=== PATIENT | male | born 1965 | race Caucasian/White ===

== ENCOUNTER 2020-08-08 16:07 | Outpatient (REF) | payer OTHER, SELFPAY ==
--- NOTE | ~2020-08-08 | XR_ITS ---
EXAMINATION: RIGHT KNEE 3 VIEWS CLINICAL INFORMATION: Pain following injury. COMPARISON: None. TECHNIQUE: AP, lateral, oblique views of the right knee were obtained. FINDINGS: There are no fractures or dislocations. There is no knee joint effusion. There is mild superior patellar spurring. There is no significant soft tissue swelling. XR/XR knee RT 4V IMPRESSION: No evidence for acute injury to the right knee.
== END 2020-08-08 16:08 | disposition home or self-care (01) ==
LOC: HO.HMGCX 16:07
PROVIDERS: PCP Internal Medicine; Visit Provider Nurse Practitioner Family
DX: L03.115 Cellulitis of right lower limb (principal); S89.90XA Unspecified injury of unspecified lower leg, initial encounter
CPT/HCPCS: 73564

== ENCOUNTER 2023-02-08 13:53 | Outpatient (REF) | payer MEDICARE, MEDICAID, SELFPAY ==
--- NOTE | 2023-02-08 14:39 | MHC.AU.MED ---
Medical Clearance for Hearing Instrumentation Date: 02/08/23 Patient Name: Pernell Wiseman Date of : 1965 Primary Care Provider: Quinn Baker MD We have seen your patient on 02/08/23 and have determined that they are a candidate for amplification (See accompanying report). Specifically, they would benefit from: Hearing aid use in both ears There is a statute that addresses Medical Evaluation Requirements prior to fitting a patient with a hearing aid. According to [place] statute 265 CMR:6.03(1), (a) General. Except as provided in 265 CMR 6.03(1)(b), a bobbin loose end finder shall not sell a hearing aid unless the prospective user has presented to the bobbin loose end finder a written statement signed by a licensed physician that states that the patient's hearing loss has been medically evaluated and the patient may be considered a candidate for a hearing aid. The medical evaluation must have taken place within the preceding six months. Please note: Due to the [place] Statute referenced above, we cannot accept a signature other than that of a licensed physician. LANDSCAPE SPECIALIST and PA signatures cannot be accepted. I am in agreement with the above recommendation. There is no medical contraindication for hearing instrumentation. Physician Signature Date Physician Name (Printed)
--- NOTE | 2023-02-09 10:14 | MHC.AU.HA1 ---
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 Although he has noticed some degree of hearing loss for over 10 years, he more recently started experiencing more communication difficulties. He often has trouble understanding speech, especially in adverse listening environments. Pernell is ready to pursue hearing aids to help ease some of his communication difficulties. Although he does not perform as frequently, he still plays the [employer] guitar. He also frequents restaurants, spends time with his girlfriend, and has an active social life. Pernell is interested in rechargeable hearing aids with bluetooth compatibility to his Android cell phone. Hearing Aid Prescription: Based on the individual?s shared listening needs, communication environments, dexterity, desire for connectivity, and personal preferences, the following prescription for amplification has been made: Right ear: Make, Model, Color: Phonak Audeo L70-R Color: Silver Camara Battery Size: Rechargeable Associate Editor/Slim Tube: 2M Type of Earmold/Dome/CShell/SlimTip: Medium open dome Left ear: Left ear prescription to be same as Right Hearing Aid above: Make, Model, Color: Phonak Audeo L70-R Color: Silver Camara Battery Size: Rechargeable Associate Editor/Slim Tube: 2M Type of Earmold/Dome/CShell/SlimTip: Medium open dome Plan of Care: Patient wishes to purchase hearing aids as prescribed Action Taken/Action Needed: Medical Clearance to be requested from PCP/ENT. Hearing Instrument Fitting to be scheduled when materials arrive Primary Diagnosis: H90.3 Bilateral Sensorineural Hearing Loss Signature: Provider: Eloina Stewart, [facility]
== END 2023-02-08 13:54 | disposition home or self-care (01) ==
LOC: HO.SH 13:53
PROVIDERS: Visit Provider Internal Medicine
DX: H90.3 Sensorineural hearing loss, bilateral (principal)
CPT/HCPCS: 92557; 92567; 92591

== ENCOUNTER 2023-03-01 10:30 | Outpatient (REF) | payer MEDICARE, MEDICAID, SELFPAY ==
[2023-03-01 14:24] LABS: MANUAL DIFF FLAG NO
[2023-03-01 14:30] LABS: Basophils Absolute Auto 0.1 X10*3/uL (0.0-0.2); Basophils Percent Auto 1.3 % (0-2); Eosinophils Absolute Auto 0.2 X10*3/uL (0.0-0.4); Eosinophils Percent Auto 2.1 % (0-4); Hematocrit 46.3 % (42.0-52.0); Imm Gran Abs Auto 0.02 X10*3/uL (0.00-0.03); Imm Gran Pct Auto 0.3 % (0.0-0.4); Lymphocytes Percent Auto 27.1 % (20-40); Mean Corpuscular HGB Conc 34.6 g/dl (31.0-36.0); Mean Corpuscular Hemoglobin 33.3 pg (27.0-33.0); Mean Corpuscular Volume 96.5 fL (80.0-98.0); Mean Platelet Volume 11.1 fL (9.4-12.4); Monocytes Absolute Auto 0.4 X10*3/uL (0.1-1.2); Monocytes Percent Auto 6.1 % (2-11); Neutrophils Absolute Auto 4.5 x10*3/uL (2.0-8.3); Neutrophils Percent Auto 63.1 % (45-73); Platelet Count 176 X10*3/uL (160-400); Red Cell Distribution Width 12.3 % (11.0-16.0); White Blood Count 7.2 X10*3/uL (4.8-10.8)
[2023-03-01 15:08] LABS: Alanine Aminotransferase 34 U/L (0-40); Albumin Level 4.3 g/dL (3.5-5.0); Alkaline Phosphatase 55 U/L (39-117); Anion Gap 13 (12-20); Aspartate Amino Transferase 25 U/L (5-37); Bilirubin Total 0.9 mg/dL (0.0-1.0); Blood Urea Nitrogen 14 mg/dL (9-16); Calcium 9.9 mg/dL (8.4-10.2); Carbon Dioxide 24 mmol/L (22-29); Chloride 105 mmol/L (96-108); Cholesterol 130 mg/dL (<200); Estimated Glomerular Filt Rate > 60; Glucose Fasting 111 mg/dL (60-99); HDL Cholesterol 34 mg/dL (>40); LDL Cholesterol Calculated 63 mg/dL (<100); Potassium 4.4 mmol/L (3.3-5.1); Sodium 138 mmol/L (135-145); TSH reflex Free T4 2.07 uIU/mL (0.32-4.0); Total Protein 7.6 g/dL (6.5-8.0); Triglycerides 167 mg/dL (<150)
[2023-03-01 15:15] LABS: Folate 15.8 ng/mL (> or = 4.0); Vitamin B12 724 pg/mL (200-900)
[2023-03-06 00:54] LABS: VITAMIN D (1,25 OH) D3 34 pg/mL; Vit D (1,25-Dihydroxy) Total 34 pg/mL (18-72); Vitamin D (1,25 OH) D2 <8 pg/mL
== END 2023-03-01 10:31 | disposition home or self-care (01) ==
LOC: HO.CHCLDS 10:30
PROVIDERS: Visit Provider Family Medicine
DX: E11.9 Type 2 diabetes mellitus without complications (principal); E55.9 Vitamin D deficiency, unspecified
CPT/HCPCS: 36415; 80053; 80061; 82607; 82652; 82746; 84443; 85025

== ENCOUNTER 2023-03-17 12:48 | Outpatient (REF) | payer MEDICARE, MEDICAID, SELFPAY | END 2023-03-17 12:49 | disposition home or self-care (01) | LOC: HO.HAP 12:48 | PROVIDERS: Visit Provider Internal Medicine | DX: Z46.1 Encounter for fitting and adjustment of hearing aid (principal); H90.3 Sensorineural hearing loss, bilateral | CPT/HCPCS: 92595; V5011; V5020; V5160; V5261 ==

== ENCOUNTER 2023-04-07 10:10 | Outpatient (REF) | payer MEDICARE, MEDICAID, SELFPAY | END 2023-04-07 10:11 | disposition home or self-care (01) | LOC: HO.MRI 10:10 | PROVIDERS: PCP Family Medicine; Visit Provider Family Medicine | DX: Z13.89 Encounter for screening for other disorder (principal) ==

== ENCOUNTER 2023-04-08 13:57 | Outpatient (REF) | payer MEDICARE, MEDICAID, SELFPAY | END 2023-04-08 13:58 | disposition home or self-care (01) | LOC: HO.HAP 13:57 | PROVIDERS: Visit Provider Internal Medicine | DX: Z13.89 Encounter for screening for other disorder (principal) ==

== ENCOUNTER 2023-04-20 08:39 | Outpatient (REF) | payer MEDICARE, MEDICAID, SELFPAY ==
--- NOTE | ~2023-04-20 | XR_ITS ---
EXAMINATION: XR BILATERAL HIPS CLINICAL INFORMATION: Bilateral hip pain COMPARISON: None TECHNIQUE: AP and frog lateral views were obtained of each hip. 4 views total. FINDINGS: RIGHT HIP: Degenerative changes on limited views of the inferior aspect of the right sacroiliac joint. Corticated cystic lucency along the lateral aspect of the right femoral neck Mild degenerative changes in the right hip with joint space narrowing. Soft tissue calcification superior to the greater trochanter. Vascular calcifications. LEFT HIP: Degenerative changes on limited views of the inferior aspect of the left sacroiliac joint. Mild degenerative changes in the left hip with joint space narrowing. Vascular calcifications. XR/XR hip RT min 2V IMPRESSION: 1. Mild degenerative changes in bilateral hips. Corticated cystic lucency along the lateral aspect of the right femoral neck. 2. Degenerative changes on limited views of the bilateral sacroiliac joints. Additional imaging with CT scan or MRI should be considered for better visualization as these modalities are much more sensitive for detection of fracture or other underlying pathology.
--- NOTE | ~2023-04-20 | XR_ITS ---
EXAMINATION: XR BILATERAL HIPS CLINICAL INFORMATION: Bilateral hip pain COMPARISON: None TECHNIQUE: AP and frog lateral views were obtained of each hip. 4 views total. FINDINGS: RIGHT HIP: Degenerative changes on limited views of the inferior aspect of the right sacroiliac joint. Corticated cystic lucency along the lateral aspect of the right femoral neck Mild degenerative changes in the right hip with joint space narrowing. Soft tissue calcification superior to the greater trochanter. Vascular calcifications. LEFT HIP: Degenerative changes on limited views of the inferior aspect of the left sacroiliac joint. Mild degenerative changes in the left hip with joint space narrowing. Vascular calcifications. XR/XR hip LT min 2V IMPRESSION: 1. Mild degenerative changes in bilateral hips. Corticated cystic lucency along the lateral aspect of the right femoral neck. 2. Degenerative changes on limited views of the bilateral sacroiliac joints. Additional imaging with CT scan or MRI should be considered for better visualization as these modalities are much more sensitive for detection of fracture or other underlying pathology.
== END 2023-04-20 08:40 | disposition home or self-care (01) ==
LOC: HO.XRAY 08:39
PROVIDERS: PCP Family Medicine; Visit Provider Family Medicine
DX: M25.552 Pain in left hip (principal); M25.551 Pain in right hip
CPT/HCPCS: 73502

== ENCOUNTER 2023-05-08 07:22 | Outpatient (REF) | payer MEDICARE, MEDICAID, SELFPAY ==
--- NOTE | ~2023-05-08 | XR_ITS ---
EXAMINATION: XR ANKLE, LEFT CLINICAL INFORMATION: Acute left ankle pain . COMPARISON: Left foot 01/06/2019. TECHNIQUE: AP, lateral, and mortise views of the left ankle. FINDINGS: Thick, elongated ossification along the distal lateral aspect of the tibia, difficult to evaluate as this region is partially obscured by the overlying fibula. Similar-appearing sclerotic lesion overlying the distal leg on the lateral view was likely present on exam of the left foot of 01/06/2019, however, AP and oblique views of the ankle are not available for comparison. Vascular calcifications. Corticated ossicle along the anterior superior aspect of the talus on the lateral view may have been present on the prior exam, versus avulsion of indeterminate age. Joint effusion. Spurring at the distal tibia with degenerative changes. XR/XR ankle LT min 3V IMPRESSION: Findings, as detailed above, of indeterminate age and significance. Correlation with clinical exam recommended to determine further management. If there is concern for fracture or other underlying pathology, MRI could be obtained for further evaluation.
[2023-05-08 09:07] LABS: ~Hepatitis C Antibody Nonreactive (Nonreactive)
== END 2023-05-08 07:23 | disposition home or self-care (01) ==
LOC: HO.XRAY 07:22
PROVIDERS: PCP Family Medicine; Visit Provider Family Medicine
DX: Z13.9 Encounter for screening, unspecified (principal); M25.572 Pain in left ankle and joints of left foot
CPT/HCPCS: 36415; 73610; 86803

== ENCOUNTER 2023-06-02 11:34 | Outpatient (AMB) | payer MEDICARE, MEDICAID, SELFPAY ==
[2023-06-02 11:37] VITALS: BMI 38.4
--- NOTE | 2023-06-02 11:37 | MHC.OFFVIS ---
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 Patient reports that he has history of left ankle fracture, this was treated with a cast. He has significant weakness and atrophy of the lower left leg. After fracture he did not do PT. This ankle has gradually become increasingly painful over the last three years. He has numbness and tingling of both feet, of note he is diabetic. He explains that his pain is felt all the time with increasing pain with activity. Allergies No Known Allergies Allergy (Verified 06/02/23 11:43) Medication List - Last Reconciled 06/02/23 by Ivelisse Salazar MD atorvastatin 10 mg PO DAILY blood sugar diagnostic (FreeStyle Lite Strips) Check blood sugars twice a day blood-glucose meter (FreeStyle Lite Meter kit) Use to check blood sugars twice a day dulaglutide (Trulicity) mg subcut lisinopril 30 mg PO DAILY loratadine 10 mg PO ONCE metformin 500 mg PO BID multivitamin 1 tab PO DAILY HPI HPI Comments History of Present Illness Details History of left proximal tibia and distal fibula 30 years, treated with cast. No issues since then. Was doing well until 3 years ago. Feels that he is dragging his foot. He can dorsiflex but he limps. Pain inside ankle , both medial and lateral. He has history of neuropathy for past 10 years, attributed to DM. Chronic back pain, but separate issue. Has not sought treatment for this. [facility] Medical History Hypertension Diabetes mellitus Surgical History No pertinent past surgical history Family History Father No problems noted. Mother No problems noted. Social History Housing: Apartment Alcohol intake: current Alcohol intake frequency: holidays/special occasions only Patient Tobacco Use Status: Current someday Tobacco user Tobacco use type: Cigarette e-Cigarette/Vaping Use: Never Used Second Hand Smoke Exposure: No service: No Current occupational status: disabled Cognitive needs: No Hearing needs: No Vision needs: No Review of Systems Const All systems reviewed & are unremarkable except as noted in HPI and below Physical Exam Vital Signs: BMI result Body Mass Index 38.4 Constitutional: Patient appears to be in no acute distress, well nourished and well developed. MSK: Several areas of tenderness, around left medial might rely, along dorsiflexor tendons, along Achilles tendon. Even tender on plantar fascia. No signs of inflammation, swelling, redness. Both feet are cold to touch symmetric. No allodynia. No change in skin or hair. No footdrop. Strong dorsiflexion and EHL bilateral. Strong inversion and eversion. No calf tenderness. Neurological: Neurologic examination of the upper and lower extremities was nonfocal with intact sensation, muscle stretch reflexes and without focal motor deficits . Driscoll?s negative bilaterally. Babinski was down going bilaterally. Clonus was negative. Gait is antalgic without loss of balance. Results Reviewed Results Reviewed: XR ANKLE, LEFT CLINICAL INFORMATION: Acute left ankle pain . COMPARISON: Left foot 01/06/2019. TECHNIQUE: AP, lateral, and mortise views of the left ankle. FINDINGS: Thick, elongated ossification along the distal lateral aspect of the tibia, difficult to evaluate as this region is partially obscured by the overlying fibula. Similar-appearing sclerotic lesion overlying the distal leg on the lateral view was likely present on exam of the left foot of 01/06/2019, however, AP and oblique views of the ankle are not available for comparison. Vascular calcifications. Corticated ossicle along the anterior superior aspect of the talus on the lateral view may have been present on the prior exam, versus avulsion of indeterminate age. Joint effusion. Spurring at the distal tibia with degenerative changes. XR/XR ankle LT min 3V IMPRESSION: Findings, as detailed above, of indeterminate age and significance. Correlation with clinical exam recommended to determine further management. If there is concern for fracture or other underlying pathology, MRI could be obtained for further evaluation. I independently reviewed the results of the following: Difficult to see the ossification mentioned above I reviewed records from the following: Primary care/[facility] Assessment & Plan Assessment & Plan (1) Left ankle sprain: Code(s): S93.402A - Sprain of unspecified ligament of left ankle, initial encounter Qualifiers: Encounter type: initial encounter Involved ligament of ankle: unspecified ligament Qualified Code(s): S93.402A - Sprain of unspecified ligament of left ankle, initial encounter (2) Neuropathy: Code(s): G62.9 - Polyneuropathy, unspecified Plan Suspect chronic ankle sprain. I thought about possibly CRPS, although he does not have signs of eyelid the knee a or skin changes. History of neuropathy from diabetes. Will put him on a boot. Gave him instructions. Referring him to physical therapy. If not improved in 2-3 months, we can consider further imaging such as MRI. Assessment and plan discussed with patient, and patient was agreeable. All questions were answered thoroughly. Follow-up 8 weeks. Ivelisse Salazar MD, GIANCARLO Board Certified, [place] Board of [employer] Medicine and Rehabilitation (ABPMR) Board Certified, [place] Board of Electrodiagnostic Medicine (ABEM) Coding Level of Care Code New Pt Level 4 (71135) Diagnoses Sprain of left ankle, unspecified ligament, initial encounter S93.402A Encounter type: initial encounter Involved ligament of ankle: unspecified ligament Neuropathy G62.9
== END 2023-06-02 12:44 | disposition home or self-care (01) ==
PROVIDERS: PCP Family Medicine; Visit Provider Physical Medicine & Rehabilitation
DX: S93.402A Sprain of unspecified ligament of left ankle, initial encounter (principal); G62.9 Polyneuropathy, unspecified
CPT/HCPCS: 99204

== ENCOUNTER → 2023-06-02 11:34 | Outpatient (BNVA) | payer MEDICARE, MEDICAID, SELFPAY | PROVIDERS: PCP Family Medicine; Visit Provider Physical Medicine & Rehabilitation | DX: S93.402A Sprain of unspecified ligament of left ankle, initial encounter (principal); G62.9 Polyneuropathy, unspecified | CPT/HCPCS: 99202 ==

== ENCOUNTER 2023-10-11 13:05 | Outpatient (AMB) | payer MEDICARE, MEDICAID, SELFPAY ==
--- NOTE | 2023-10-11 13:09 | A.OFFVIS_ITS ---
Vital Signs 10/11/23 13:10 Height 5 ft 7 in Weight 218 lb 4.122 oz BMI 34.2 BP 136/66 Blood Pressure Location Lt brachial Position Sitting Pulse 94 Intake Visit Reasons: Colonoscopy Screening Intake Note: Pernell presents in the office as a colonoscopy screening. CC: He states that he is has changed his diet and lost 50lbs. Rash has gone away. 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 Allergies No Known Allergies Allergy (Verified 10/11/23 13:12) Medication List - Last Reconciled 10/11/23 by Brandy Santos PA-C atorvastatin 10 mg PO DAILY betamethasone dipropionate 0.05% appl topical blood sugar diagnostic (FreeStyle Lite Strips) Check blood sugars twice a day blood-glucose meter (FreeStyle Lite Meter kit) Use to check blood sugars twice a day dulaglutide (Trulicity) mg subcut gabapentin mg PO lisinopril 30 mg PO DAILY metformin 500 mg PO BID multivitamin 1 tab PO DAILY HPI Comments Details: 58-year-old male referred for index screening colonoscopy He has a ggod- vegeterian- x 5 mos- gave up atoh He has intentionally lost wt- He has no issues with his bowel He had had a rash resolved unsure cause- psoriasis- sees derm No N/V/D-abdomianl pain- PFSH Medical History Hypertension Diabetes mellitus Surgical History No pertinent past surgical history Family History Father No problems noted. Mother No problems noted. Social History Housing: Apartment Alcohol intake: current Alcohol intake frequency: holidays/special occasions only Patient Tobacco Use Status: Current someday Tobacco user Tobacco use type: Cigarette e-Cigarette/Vaping Use: Never Used Second Hand Smoke Exposure: No service: No Current occupational status: disabled Cognitive needs: No Hearing needs: No Vision needs: No Review of Systems Const Reports fatigue Card Denies chest pain and Denies dyspnea Resp Denies dyspnea GI Denies abdominal pain, Denies constipation, Denies heartburn and Denies nausea Endo Reports fatigue Physical Exam Vital Signs: Last Vital Signs Pulse 94 10/11/23 13:10 BP 136/66 10/11/23 13:10 BMI result Body Mass Index 34.2 Const General: cooperative, healthy appearing, comfortable and no acute distress Nutritional Appearance: overweight Orientation/consciousness: patient oriented x3 Limitations: no limitations Resp Effort & Inspection: normal respiratory effort and able to speak in complete sentences Auscultation: clear to auscultation bilaterally, no rales, no rhonchi and no wheezes Cardio Rate: regular rate Rhythm: regular rhythm Heart sounds: S1 normal heart sound present and S2 normal heart sound present GI Palpation (GI): Soft to palpation and nontender Auscultation: normal bowel sounds Skin General skin exam: no rashes or lesions noted Neuro General: patient oriented x3 Extrem General: Yes full ROM Psych Appearance: well kempt Mental Status: mental status grossly normal Speech and movement: Normal speech and movement present and Clear speech present Affect: normal affect Attitude: cooperative Thought process: Normal thought process present Thought content: Normal thought content present Insight: Good insight present (Psych) Judgement: Good judgement present (Psych) Assessment & Plan Assessment & Plan (1) Obesity: Code(s): E66.9 - Obesity, unspecified Category: Medical Plan: BMI 34.2 (2) Diabetes mellitus: Comment: alicia, metformin Code(s): E11.9 - Type 2 diabetes mellitus without complications Category: Medical Plan: trulicity FRIDAYS (3) Positive colorectal cancer screening using Cologuard test: Code(s): R19.5 - Other fecal abnormalities Category: Medical Plan: colonoscopy (4) Encounter for screening colonoscopy: Code(s): Z12.11 - Encounter for screening for malignant neoplasm of colon Category: Medical Plan colonoscopy r/o cause for (reviewed approximate 13% false positive) positive Cologuard MiraLax Gatorade prep BMI 34.2 Trulicity-hold x1 week Metformin omit day before procedure as well as morning Orders: Orders Colonoscopy - GI Use Only Today E66.9 - Obesity, unspecified, R19.5 - Other fecal abnormalities Medications: New bisacodyl (Dulcolax (bisacodyl)) Day before procedure @ 12 noon Take 4 tablets by mouth followed by large glass of water 20 mg (4 x 5 mg) PO ONCE PRN 4 tabs 0RF colonoscopy prep 1 day Z12.11 - Encounter for screening for malignant neoplasm of colon polyethylene glycol 3350 (Miralax) Take as directed by mouth the day before your procedure. 238 grams PO ONCE PRN 238 grams 0RF laxative effect 1 day Discontinued loratadine Discontinued Reason: Patient no longer taking 10 mg PO DAILY Patient Instructions: Screening colonoscopy Discussed procedure, rare risks need for e scorted due to anesthesia MiraLax Gatorade prep reviewed literature given [facility] prior to procedure Will omit metformin day before as well as morning of procedure Encouraged to call with questions or concerns
[2023-10-11 13:10] VITALS: BP 136/66; PULSE 94; BMI 34.2
== END 2023-10-11 15:05 | disposition home or self-care (01) ==
LOC: HO.HGI 13:05
PROVIDERS: PCP Family Medicine; Visit Provider Physician Assistant
DX: E66.9 Obesity, unspecified (principal); E11.9 Type 2 diabetes mellitus without complications; R19.5 Other fecal abnormalities; Z12.11 Encounter for screening for malignant neoplasm of colon
CPT/HCPCS: 99203

== ENCOUNTER → 2023-10-11 13:05 | Outpatient (BNVA) | payer MEDICARE, MEDICAID, SELFPAY | PROVIDERS: PCP Family Medicine; Visit Provider Physician Assistant | DX: R19.5 Other fecal abnormalities (principal); E11.9 Type 2 diabetes mellitus without complications; E66.9 Obesity, unspecified; Z68.34 Body mass index [BMI] 34.0-34.9, adult; Z79.85 Long-term (current) use of injectable non-insulin antidiabetic drugs | CPT/HCPCS: 99202 ==

== ENCOUNTER 2023-12-13 10:30 | Outpatient (REF) | payer MEDICARE, MEDICAID, SELFPAY ==
[2023-12-14 08:24] LABS: HBS Num1 0.36 mIU/mL (0-7.99); HBc Num1 0.27 S/CO (0.00-0.79); HBsAGNum1 0.25 S/CO (0.00-0.99); HIV AB/AG Nonreactive (Nonreactive); HIV Num 1 0.05 S/CO (0.00-0.99); Hepatitis B Core Antibody Nonreactive (Nonreactive); Hepatitis B Surface Antigen Negative (Negative); ~Hepatitis B Surface Antibody NONREACTIVE (Nonreactive)
== END 2023-12-13 10:31 | disposition home or self-care (01) ==
LOC: HO.LAB 10:30
PROVIDERS: PCP Family Medicine; Visit Provider Family Medicine
DX: Z13.9 Encounter for screening, unspecified (principal); Z11.59 Encounter for screening for other viral diseases
CPT/HCPCS: 36415; 86704; 86706; 87340; 87389

== ENCOUNTER 2024-02-29 08:51 | Day surgery (SDC) | payer MEDICARE, MEDICAID, SELFPAY ==
[2024-02-25 13:00] VITALS: BMI 34.1
--- NOTE | 2024-02-28 09:25 | HO.ANESPROP2 ---
HPI - Anesthesia Eval Consult details Narrative: 58yo M for Colonoscopy Anesthesia Pre-Procedure Meds Is the patient on any of the following meds?: GLP1/DPP4 PMFSH Active Problems Active Problems: All Active Problems Positive colorectal cancer screening using Cologuard test (Acute) Encounter for screening colonoscopy (Acute) Neuropathy (Acute) Left ankle sprain (Acute) Physical exam (Acute) Depression (Acute) Hyperlipidemia (Acute) Hypertension (Acute) Obesity (Acute) Type 2 diabetes mellitus with morbid obesity (Acute) Physical exam (Acute) Cellulitis of knee, right (Acute) Knee injury (Acute) Hypertension (Acute) Diabetes mellitus (Acute) Past Medical History Medical History Elevated cholesterol Neuropathy Hypertension Diabetes mellitus Family History Family History Father No problems noted. Mother No problems noted. Surgical History Surgical History No pertinent past surgical history Social History Social History Housing: Apartment Alcohol intake: current Alcohol intake frequency: holidays/special occasions only Patient Tobacco Use Status: Former Tobacco user Tobacco use type: Cigarette e-Cigarette/Vaping Use: Never Used Second Hand Smoke Exposure: No Use of substances other than those prescribed or required for medical reasons: Yes Are you DNR?: No Advance Directives: No Advance Directives Information Provided: Yes Recently lost weight without trying: No Nutrition Risks: No Nutritional Risk Poor oral hygiene: No service: No Current occupational status: disabled Cognitive needs: No Hearing needs: No Vision needs: No Meds Allergies Allergy/AdvReac Type Severity Reaction Status Date / Time No Known Allergies Allergy Verified 10/11/23 13:12 Home Medications ?Medication ?Instructions ?Recorded ?Confirmed ?Last Taken ?Type dulaglutide 0.75 mg/0.5 mL 0.75 mg subcut QWEEK 06/02/23 02/25/24 Unknown History subcutaneous pen injector (Trulicity) gabapentin 300 mg capsule 600 mg PO BEDTIME 10/11/23 02/25/24 Unknown History Exam Height,Weight and Vital Signs: Height 5 ft 7 in Weight 98.883 kg Assessment and Plan Assessment Anesthesia Assessment: Chart Reviewed
--- NOTE | ~2024-02-29 | XR_ITS ---
EXAMINATION: CHEST AND KUB CLINICAL INFORMATION: Rule out bowel perforation with abdominal pain after colonoscopy and polypectomy COMPARISON: None available. TECHNIQUE: AP upright portable chest and supine abdomen FINDINGS: Heart size normal. No free air is seen beneath the hemidiaphragms. Some mild basilar atelectasis is present. The bowel gas pattern is unremarkable without evidence of obstruction. There is gas seen in colon as well as small bowel. Clips are noted along the path of the descending colon and overlying the region of the sigmoid. Degenerative changes are seen in the spine. XR/XR KUB IMPRESSION: No evidence of bowel obstruction or perforation. No free air is seen. Electronically signed by: Ga Mariscal MD 02/29/2024 05:32 PM EDT RP
--- NOTE | ~2024-02-29 | XR_ITS ---
EXAMINATION: CHEST AND KUB CLINICAL INFORMATION: Rule out bowel perforation with abdominal pain after colonoscopy and polypectomy COMPARISON: None available. TECHNIQUE: AP upright portable chest and supine abdomen FINDINGS: Heart size normal. No free air is seen beneath the hemidiaphragms. Some mild basilar atelectasis is present. The bowel gas pattern is unremarkable without evidence of obstruction. There is gas seen in colon as well as small bowel. Clips are noted along the path of the descending colon and overlying the region of the sigmoid. Degenerative changes are seen in the spine. XR/XR chest 1V IMPRESSION: No evidence of bowel obstruction or perforation. No free air is seen. Electronically signed by: Ga Mariscal MD 02/29/2024 05:32 PM EDT RP
--- NOTE | ~2024-02-29 | XR_ITS ---
EXAMINATION: XR ABDOMEN KUB CLINICAL INDICATION: Evaluation for pneumoperitoneum COMPARISON: Earlier KUB and chest radiograph TECHNIQUE: AP view of the abdomen. FINDINGS: Upright study shows normal bowel gas pattern without free air, mass, or mass effect. XR/XR KUB IMPRESSION: Unremarkable Electronically signed by: Jay Payan MD 02/29/2024 04:38 PM EDT RP
--- NOTE | 2024-02-29 09:21 | MHC.SHP ---
Pre-Procedural Eval Section A - 24 Hr Update-Section A only Date of Service: 02/29/24 The patient is an INPATIENT: No The patient has been examined within 24 hours of the surgical procedure. The History & Physical has been completed within 30 days and I have reviewed it.: No Section B - Complete if H&P > 30 days Chief Complaint: Positive Cologuard test Relevant Family History (Specify if Yes): Yes Relevant Social History: Tobacco Use Present Medications: see Short Stay Collaborative assessment Medical History: Significant History (Hypertension Diabetes mellitus) History of Previous Operations: No relevant previous surgery Allergies: Allergies Allergy/AdvReac Type Severity Reaction Status Date / Time No Known Allergies Allergy Verified 10/11/23 13:12 Review of Systems Sugical H&P ROS: Negative: Constitution, Cardiovascular, Respiratory and Gastrointestinal Exam Surgical H&P Exam: Normal: Heart, Normal: Lungs, Normal: Extremities and Normal: Abdomen Plan Diagnosis/Plan: Unchanged I have reviewed the history and physical and performed a pertinent physical examination on my patient. No changes have occurred unless specified. Time Spent With Patient Time: Total time managing care of this patient today ____ minutes.
[2024-02-29 09:47] VITALS: BMI 32.9
[2024-02-29 09:57] VITALS: BP 142/81; PULSE 87; RESP 16; TEMP 36.9; O2SAT 98
[2024-02-29 09:57] LABS: Glucose, Whole Blood 99 mg/dL (60-115)
[2024-02-29] MEDS: Lactated Ringers 1,000 ML 100 ML IVCONT (10:13)
--- NOTE | 2024-02-29 10:40 | HO.ANESPROP2 ---
[facility] Active Problems Active Problems: All Active Problems Positive colorectal cancer screening using Cologuard test (Acute) Encounter for screening colonoscopy (Acute) Neuropathy (Acute) Left ankle sprain (Acute) Physical exam (Acute) Depression (Acute) Hyperlipidemia (Acute) Hypertension (Acute) Obesity (Acute) Type 2 diabetes mellitus with morbid obesity (Acute) Physical exam (Acute) Cellulitis of knee, right (Acute) Knee injury (Acute) Hypertension (Acute) Diabetes mellitus (Acute) Past Medical History Medical History Elevated cholesterol Neuropathy Hypertension Diabetes mellitus Functional capacity: independent ambulation Family History Family History Father No problems noted. Mother No problems noted. Family history of problems with anesthesia: No Surgical History Surgical History No pertinent past surgical history History of Problems with Anesthesia: No Social History Social History Housing: Apartment Alcohol intake: current Alcohol intake frequency: holidays/special occasions only Patient Tobacco Use Status: Former Tobacco user Tobacco use type: Cigarette e-Cigarette/Vaping Use: Never Used Second Hand Smoke Exposure: No Use of substances other than those prescribed or required for medical reasons: Yes Are you DNR?: No Advance Directives: No Advance Directives Information Provided: Yes Recently lost weight without trying: No Nutrition Risks: No Nutritional Risk Poor oral hygiene: No service: No Current occupational status: disabled Cognitive needs: No Hearing needs: No Vision needs: No Meds Allergies Allergy/AdvReac Type Severity Reaction Status Date / Time No Known Allergies Allergy Verified 10/11/23 13:12 Active Medications: Current Medications Lactated Ringer's (Lr) 1,000 mls @ 100 mls/hr IVCONT .Q10H RAFA Last Admin: 02/29/24 10:13 Dose: 100 mls/hr Home Medications ?Medication ?Instructions ?Recorded ?Confirmed ?Last Taken ?Type dulaglutide 0.75 mg/0.5 mL 0.75 mg subcut QWEEK 06/02/23 02/25/24 Unknown History subcutaneous pen injector (Trulicity) gabapentin 300 mg capsule 600 mg PO BEDTIME 10/11/23 02/25/24 Unknown History Exam Height,Weight and Vital Signs: Height 5 ft 7 in Weight 95.254 kg Last Vital Signs Temp 98.4 F 02/29/24 09:57 Pulse 87 02/29/24 09:57 Resp 16 02/29/24 09:57 BP 142/81 H 02/29/24 09:57 Pulse Ox 98 02/29/24 09:57 O2 Del Method Room Air 02/29/24 09:57 Pertinent Lab Results Pertinent Lab Results: Laboratory Tests 02/29/24 09:51 POC Glucose 99 Airway Mallampati Class: III TM Dist: >3cm Neck ROM: Full Heart: RRR Lungs: CTA Assessment and Plan Assessment Anesthesia Assessment: Anesthesia Plan Discussed, Smoking Cess. Discussed and Chart Reviewed Final Anesthetic Review Family History of Problems with Anesthesia: No History of Problems with Anesthesia: No NPO: Yes ASA Class: III Final Preanesthetic Review: Meds/Allgs Chart Reviewed, Consent Obtained/Reviewed and Anes Risks/Benef Reviewed Patient Risk: Intermediate Procedure Risk: Low Anesthetic Plan Anesthetic Plan: MAC: Disposition: Standard PACU
--- NOTE | 2024-02-29 11:30 | P.OPN-COLO_ITS ---
Colonoscopy Operative Note Operative Note Date of Service: 02/29/24 Narrative: COLONOSCOPY TILL CECUM WITH SNARE POLYPECTOMY, SUBMUCOSAL INJECTION AND HEMOCLIP PLACEMENT Pre-op diagnosis: Colon cancer screening (first colonoscopy), positive Cologuard test, family history of colon polyps (brother) Post-op diagnosis: Colon polyps, Diverticulosis, hemorrhoids Endoscopist:? Kunal Thomas MD Anesthesia:?MAC Consent: Indications for the procedure and potential complications of bleeding, perforation, reaction to medications and missed diagnosis were discussed with the patient and informed consent was obtained. Instrument: Olympus CF H 190 L variable stiffness adult colonoscope Monitoring: Vital signs and clinical assessment, intermittent blood pressure monitoring, continuous EKG monitoring, Pulse oximetry and Carbon Dioxide monitoring were done throughout the procedure. Please see anesthesia flowsheet. Colon withdrawl time was 37 minutes. Procedure: The patient was placed in the left lateral decubitis position and pre-procedure medications were administered. After a digital rectal examination of the ano-rectum, the video colonoscope was inserted into the rectum and advanced through the colon to the cecum. The colonoscope was slowly withdrawn in a retrograde panoramic fashion and the colon mucosa was carefully examined including a retroflexed view of the rectum. Findings and interventions are described below. Procedure Difficulty: without difficulty Findings: Terminal Ileum: Not evaluated Cecum: Normal Ascending Colon: Normal Transverse Colon: A 2 cms sessile polyp at 65 cms - removed with a hot snare and polypectomy site was closed with 2 hemoclips Descending Colon: A 12 -15 mm sessile polyp - removed with a hot snare Moderate diverticulosis Sigmoid Colon: A 2 to 2.5 cms pedunculated polyp at 50 cms - removed with a hot snare. Polypectomy site was closed with 2 hemoclips and marked by maria e ink. A 2 cms pedunculated polyp at 30 cms - removed with hot snare. Polypectomy site was closed with 1 hemoclip and marked by Maria E ink Severe diverticulosis with luminal narrowing Rectum: Normal Ano-rectum: Moderate internal hemorrhoids Colon preparation: Good after some irrigation. [place] Bowel Preparation Scale Right colon; 3 Transverse colon: 3 Left colon; 3 (0 = Unprepared colon segment with mucosa not seen due to solid stool that cannot be cleared. 1 = Portion of mucosa of the colon segment seen, but other areas of the colon segment not well seen due to staining, residual stool and/or opaque liquid. 2 = Minor amount of residual staining, small fragments of stool and/or opaque liquid, but mucosa of colon segment seen well. 3 = Entire mucosa of colon segment seen well with no residual staining, small fragments of stool or opaque liquid) Impression and Post Procedure Diagnosis: Colonoscopy Findings: Three large and one medium sized polyps were removed Moderate diverticulosis seen in the left colon Moderate hemorrhoids on retroflexed exam. Plan: I will send a letter with biopsy results Pt has a FU appointment on 05/30/24 with GLADIS Cooley. Repeat Colonoscopy in 6 to 12 months to check polypectomy sites in the left and transverse colon if polyps are adenomatous and 5 years if polyps are hyperplastic. Above findings were reviewed with the patient and relevant handouts were given and the discharge area. ADDENDUM: Pt complained of abdominal pain after the procedure. Stat CXR and KUB ordered which showed: Upright study shows normal bowel gas pattern without free air, mass, or mass effect. BIOPSIES SHOWED: A. Colon, polypectomy: Tubular adenoma; negative for high-grade dysplasia or ca rcinoma. B. Colon, descending, polypectomy: Hyperplastic mucosal polyp. C. Colon, sigmoid, polypectomy: Tubulovillous adenoma; negative for high-grade dysplasia or carcinoma. D. Colon, 30 cm, polypectomy: Tubular adenoma; negative for high-grade dysplasia or carcinoma Pt called and biopsy results reviewed with him and advised repeat colon in 1 year. He reported abdominal pain has improved and only having minor discomfort.
[2024-02-29 11:36] VITALS: BP 162/98; PULSE 96; RESP 16; TEMP 36.6; O2SAT 98
[2024-02-29 11:51] VITALS: BP 189/103; PULSE 89; RESP 18; O2SAT 99
[2024-02-29 12:06] VITALS: BP 156/76; PULSE 68; RESP 17; O2SAT 98
[2024-02-29 12:54] VITALS: BP 150/72; PULSE 72; RESP 16; O2SAT 97
[2024-02-29 13:11] VITALS: BP 150/74; PULSE 76; RESP 17; TEMP 36.7; O2SAT 98
== END 2024-02-29 13:28 | disposition home or self-care (01) ==
PROVIDERS: PCP Family Medicine; Visit Provider Internal Medicine Gastroenterology
PROC: 0DJD8ZZ Inspection of Lower Intestinal Tract, Via Natural or Artificial Opening Endoscopic (ICD-10-PCS; CPT 45378; principal; 2024-02-29 10:20)
DX: R19.5 Other fecal abnormalities (principal); Z83.719 Family history of colon polyps, unspecified; D12.3 Benign neoplasm of transverse colon; D12.5 Benign neoplasm of sigmoid colon; K63.5 Polyp of colon; K57.30 Diverticulosis of large intestine without perforation or abscess without bleeding; K64.8 Other hemorrhoids; E66.9 Obesity, unspecified; Z68.34 Body mass index [BMI] 34.0-34.9, adult; I10 Essential (primary) hypertension; E11.9 Type 2 diabetes mellitus without complications; Z79.85 Long-term (current) use of injectable non-insulin antidiabetic drugs; Z79.84 Long term (current) use of oral hypoglycemic drugs; Z79.899 Other long term (current) drug therapy; F17.210 Nicotine dependence, cigarettes, uncomplicated
CPT/HCPCS: 45385; 45381; 71045; 74018; 82947; 88305; J2250; J2704; Q9968

== ENCOUNTER → 2024-02-29 08:51 | Outpatient (BNV) | payer MEDICARE, MEDICAID, SELFPAY | PROVIDERS: PCP Family Medicine; Visit Provider Internal Medicine Gastroenterology | DX: Z12.11 Encounter for screening for malignant neoplasm of colon (principal); R19.5 Other fecal abnormalities; Z83.719 Family history of colon polyps, unspecified; D12.5 Benign neoplasm of sigmoid colon | CPT/HCPCS: 45381; 45385 ==

== ENCOUNTER 2024-05-31 08:45 | Outpatient (REF) | payer MEDICARE, MEDICAID, SELFPAY ==
[2024-05-31 14:11] LABS: MANUAL DIFF FLAG NO
[2024-05-31 14:15] LABS: Basophils Absolute Auto 0.1 X10*3/uL (0.0-0.2); Basophils Percent Auto 1.3 % (0-2); Eosinophils Absolute Auto 0.2 X10*3/uL (0.0-0.4); Eosinophils Percent Auto 2.8 % (0-4); Hematocrit 44.9 % (42.0-52.0); Hemoglobin 15.1 g/dl (14.0-18.0); Imm Gran Abs Auto 0.02 X10*3/uL (0.00-0.03); Imm Gran Pct Auto 0.4 % (0.0-0.4); Lymphocytes Absolute Auto 1.5 X10*3/uL (1.2-4.9); Lymphocytes Percent Auto 27.5 % (20-40); Mean Corpuscular HGB Conc 33.6 g/dl (31.0-36.0); Mean Corpuscular Hemoglobin 32.1 pg (27.0-33.0); Mean Corpuscular Volume 95.5 fL (80.0-98.0); Mean Platelet Volume 10.9 fL (9.4-12.4); Monocytes Absolute Auto 0.5 X10*3/uL (0.1-1.2); Monocytes Percent Auto 9.7 % (2-11); Neutrophils Absolute Auto 3.1 x10*3/uL (2.0-8.3); Neutrophils Percent Auto 58.3 % (45-73); Platelet Count 146 X10*3/uL (160-400); Red Cell Distribution Width 12.4 % (11.0-16.0); White Blood Count 5.4 X10*3/uL (4.8-10.8)
[2024-05-31 14:33] LABS: Estimated Average Glucose 103 mg/dL; Hemoglobin A1C 121.4771 umol/L; Hemoglobin A1c % 5.2 % (<6.0); Total Hemoglobin (HGBA1C) 3702.2122 umol/L
[2024-05-31 14:40] LABS: Albumin Level 4.3 g/dL (3.5-5.0); Alkaline Phosphatase 60 U/L (39-117); Anion Gap 12 (12-20); Aspartate Amino Transferase 34 U/L (5-37); Bilirubin Total 0.5 mg/dL (0.0-1.0); Blood Urea Nitrogen 14 mg/dL (9-16); Calcium 9.9 mg/dL (8.4-10.2); Carbon Dioxide 26 mmol/L (22-29); Chloride 107 mmol/L (96-108); Cholesterol 127 mg/dL (<200); Estimated Glomerular Filt Rate > 60; Glucose Random 114 mg/dL (60-115); HDL Cholesterol 39 mg/dL (>40); LDL Cholesterol Calculated 64 mg/dL (<100); Potassium 4.2 mmol/L (3.3-5.1); Sodium 141 mmol/L (135-145); Total Protein 7.4 g/dL (6.5-8.0); Triglycerides 120 mg/dL (<150)
[2024-05-31 14:45] LABS: Alanine Aminotransferase 34 U/L (0-40)
[2024-05-31 14:55] LABS: TSH reflex Free T4 2.35 uIU/mL (0.32-4.0)
[2024-05-31 15:00] LABS: Folate 11.1 ng/mL (> or = 4.0); Vitamin B12 561 pg/mL (200-900)
== END 2024-05-31 08:46 | disposition home or self-care (01) ==
LOC: HO.CHCLDS 08:45
PROVIDERS: Visit Provider Family Medicine
DX: E11.9 Type 2 diabetes mellitus without complications (principal)
CPT/HCPCS: 36415; 80053; 80061; 82607; 82746; 83036; 84443; 85025

== ENCOUNTER → 2025-01-25 20:30 | Outpatient (REF) | payer MEDICARE, MEDICAID, SELFPAY | LOC: HO.SL 20:30 | PROVIDERS: PCP Family Medicine; Visit Provider Registered Nurse | DX: R06.81 Apnea, not elsewhere classified (principal); Z53.8 Procedure and treatment not carried out for other reasons | CPT/HCPCS: 95810 ==

== ENCOUNTER 2025-01-29 08:43 | Outpatient (REF) | payer MEDICARE, MEDICAID, SELFPAY ==
--- OUTSIDE RECORDS SUMMARY | 2025-01-29 09:03 | XMS_ITS | Encounter Summary ---
Author Organization [employer] Address [address] [facility] [address] [place] [address] Care Team Providers Care Care Professionals Name Role Phone Anabelle Palacios MD Primary Care Provider [phone] Reason for Visit * Reason Comments Med Refill Encounter Details Date Type Department Care Team ([facility] Contact Info) Description 11/13/2024 Refill [facility] [address], [place] [id number] Jamey Aj MD [address] [place] [address] Other polyneuropathy Social History Tobacco Use Types Packs/Day Years Used Date Smoking Tobacco: Former Cigars Passive Smoke Exposure: Past Alcohol Use Standard Drinks/Week Comments Yes 0 (1 standard drink = 0.6 oz pur e alcohol) Depression Answer Date Recorded Patient Health Questionnaire-9 Score 0 05/25/2024 Patient Health Questionnaire-9 Score 0 05/25/2024 Last PHQ-9: Questionnaire Data Not on file 1 07/26/2023 Housing Stability Answer Date Recorded What is your housing situation today? I have octaviaandre wen 04/07/[address] you li ve. Do you have problems with any of the following? None of the above 04/07/2023 Food Insecurity Answer Date Recorded Within the past 12 months, y ou worried that your food would run out before you got money to buy more: Often true 04/07/2023 Within the past 12 months,th e food you bought just didn't last and you didn't have enough money to get more: Often true Transportation Answer Date Recorded In the past 12 months, has l ack of transportation kept you from medical appts, meetings, work or from getting things needed for daily living? Yes, it has kept me from medical appointments or getting medications. 03/29/2023 Utilities Answer Date Recorded In the past 12 months, has t he electric, gas, oil or water company threatened to shut off services in your home? No 04/07/2023 Depression Answer Date Recorded Patient Health Questionnaire-2 Score 0 05/25/2024 Sex and Gender Information Value Date Recorded Sex Assigned at Male 01/13/2023 2:40 PM EDT Legal Sex Male 2:35 PM EDT Gender Identity Male 01/13/2023 2:40 PM EDT Sexual Orientation Straight 02/25/2023 12 :07 PM EDT Occupation Industry Job Start Date Job End Date Disability Not on file Not on file Not on file documented as of this encounter Plan of Treatment Not on file documented as of this encounter Visit Diagnoses Diagnosis Other polyneuropathy documented in this encounter Additional Health Concerns Assessment Noted Time PHQ-9 Depression Total Score: 0 05/25/20 24 1:26 PM EST documented as of this encounter Care Teams Care Professionals Relationship Specialty Start Date End Date Anabelle Palacios MD [address] [place] [address] PCP - General Family Medicine 03/01/23 Kunal Thomas MD [address] [address] Gastroenterology 10/11/23 documented as of this encounter
[2025-01-29 14:23] LABS: MANUAL DIFF FLAG NO
[2025-01-29 14:44] LABS: Hematocrit 43.2 % (42.0-52.0); Hemoglobin 14.5 g/dl (14.0-18.0); Imm Gran Abs Auto 0.02 X10*3/uL (0.00-0.03); Imm Gran Pct Auto 0.3 % (0.0-0.4); Lymphocytes Absolute Auto 1.5 X10*3/uL (1.2-4.9); Mean Corpuscular HGB Conc 33.6 g/dl (31.0-36.0); Mean Corpuscular Hemoglobin 31.9 pg (27.0-33.0); Mean Corpuscular Volume 94.9 fL (80.0-98.0); NRBC Abs Auto 0.000 X10*3/uL (0.0-0.012); NRBC Pct Auto 0.0 /100WBC (0.0-0.2); Platelet Count 179 X10*3/uL (160-400); Red Blood Count 4.55 X10*6/uL (4.60-5.80); White Blood Count 5.7 X10*3/uL (4.8-10.8)
[2025-01-29 14:45] LABS: INTERNATIONAL NORM RATIO 1.0 (0.9-1.1); Prothrombin Time 11.6 SEC (10.9-12.4)
[2025-01-29 15:13] LABS: Alanine Aminotransferase 23 U/L (0-40); Albumin Level 4.4 g/dL (3.5-5.0); Alkaline Phosphatase 49 U/L (39-117); Anion Gap 12 (12-20); Aspartate Amino Transferase 29 U/L (5-37); Blood Urea Nitrogen 24 mg/dL (9-16); Calcium 10.1 mg/dL (8.4-10.2); Carbon Dioxide 26 mmol/L (22-29); Chloride 107 mmol/L (96-108); Estimated Glomerular Filt Rate > 60; Potassium 4.8 mmol/L (3.3-5.1); Sodium 140 mmol/L (135-145); Total Protein 7.0 g/dL (6.5-8.0)
== END 2025-01-29 08:44 | disposition home or self-care (01) ==
LOC: HO.CHCLDS 08:43
PROVIDERS: Visit Provider Registered Nurse
DX: Z01.818 Encounter for other preprocedural examination (principal); E08.6 Diabetes mellitus due to underlying condition with other specified complications; I49.9 Cardiac arrhythmia, unspecified
CPT/HCPCS: 36415; 80053; 85025; 85610

== ENCOUNTER 2025-05-24 10:37 | Outpatient (AMB) | payer MEDICARE, MEDICAID, SELFPAY ==
--- NOTE | 2025-05-24 10:38 | MHC.OFFVIS ---
Vital Signs 05/24/25 10:43 05/24/25 10:54 Height 5 ft 7 in Weight 220 lb BMI 34.5 BP 100/58 L Blood Pressure Location Lt brachial Position Sitting Pulse 110 H 97 Pulse Source Pulse Oximeter Pulse Oximetry (%) 97 Oxygen Delivery Method Room Air Intake Visit Reasons: YEARLY COLONOSCOPY RECALL Intake Note: Patient complex follow up for Colonoscopy one year recall, last Colonoscopy was 02/2024 and last visit with Brandy was 09/2023. Patient denies any GI issues. 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: No Accompanied by: Self / Same As Patient Allergies No Known Allergies Allergy (Verified 05/24/25 10:38) Medication List - Last Reconciled 05/24/25 by Elen Tompkins CNP atorvastatin 10 mg PO DAILY blood sugar diagnostic (FreeStyle Lite Strips) Check blood sugars twice a day blood-glucose meter (FreeStyle Lite Meter kit) Use to check blood sugars twice a day clopidogrel (Plavix) 75 mg PO DAILY dulaglutide (Trulicity) 0.75 mg subcut QWEEK gabapentin 600 mg PO BEDTIME lidocaine 5% 1 patch topical DAILY lisinopril 30 mg PO DAILY HPI HPI YEARLY COLONOSCOPY RECALL: Details: Patient is a 60-year-old male with PMH of hypertension, hyperlipidemia, diabetes. Pernell presents for scheduled one-year surveillance following a colonoscopy in February 2024, which revealed multiple polyps: two in the sigmoid colon, one large (12?15 mm) benign polyp in the descending colon, and one precancerous polyp in the transverse colon, all previously removed. He reports regular bowel movements (~once daily) with occasional variation in stool consistency, notably transient constipation attributed to gabapentin and intermittent looser stools after consuming rich holiday foods; these episodes are not his norm as he otherwise maintains a healthy diet and abstains from red meat. Notably, recent holidays and surgical recovery have influenced bowel patterns but without alarming features. No history of colon cancer in first-degree relatives, though a sibling diagnosed with diverticulitis and patient with diverticulosis per prior report. The patient is currently recovering from vascular surgery ( femoral angioplasty and hip cleanout ), with some ongoing leg pain and mild numbness but is cleared on the operative side. He reports weight stability in the low 200s, is overweight, and has a post-operative downtime of ~90 days. Current medications include atorvastatin and clopidogrel; dulaglutide is held postoperatively. Patient denies: fever/chills, n/v, appetite changes, pyrosis, regurgitation,dysphasia, unintentional wt loss, ab pain or melena/hematochezia. Social hx: -denies ETOH use, cessation 2 years ago -marijuana gummies, denies other recreational drug use -former smoker, cessation 01/2024 - family hx as below -denies personal hx of CA - significant cardiopulmonary history -tolerated anesthesia in the past without difficulty. [facility] Medical History (Updated 05/24/25 @ 11:17 by Elen Tompkins CNP) Elevated cholesterol Neuropathy Hypertension Diabetes mellitus Surgical History (Updated 05/24/25 @ 10:52 by Thalia Vera) History of surgery on lower extremity Hx of colonoscopy No pertinent past surgical history Family History Father No problems noted. Mother No problems noted. Social History Housing: Apartment Alcohol intake: current Alcohol intake frequency: holidays/special occasions only Patient Tobacco Use Status: Former Tobacco user Tobacco use type: Cigarette e-Cigarette/Vaping Use: Never Used Second Hand Smoke Exposure: No service: No Current occupational status: disabled Cognitive needs: No Hearing needs: No Vision needs: No Review of Systems Const Reports as per HPI ENT Reports as per HPI Card Reports as per HPI Resp Reports as per HPI GI Reports as per HPI Reports as per HPI Physical Exam Vital Signs: BMI result Body Mass Index 34.5 Const General: healthy appearing, no acute distress and well developed Nutritional Appearance: average body habitus Orientation/consciousness: patient oriented x3 HEENT Head: Yes normal to inspection, Yes normocephalic and Yes atraumatic Face and sinus: Yes normal facial exam Eyes General: appearance normal, both eyes and all related structures Neck Neck: Yes normal visual inspection Resp Effort & Inspection: normal respiratory effort, able to speak in complete sentences, no tracheal deviation and symmetric chest movement Cardio Jugular venous distension: no JVD GI Auscultation: normal bowel sounds Neuro General: patient oriented x3 Gait exam (Neuro): Normal gait present Psych Appearance: grossly normal Mental Status: mental status grossly normal Speech and movement: Normal speech and movement present Affect: normal affect Attitude: cooperative Thought process: Normal thought process present Thought content: Normal thought content present Insight: Good insight present (Psych) Judgement: Good judgement present (Psych) Results Reviewed Results Reviewed: Operative Note Date of Service: 02/29/24 Narrative: COLONOSCOPY TILL CECUM WITH SNARE POLYPECTOMY, SUBMUCOSAL INJECTION AND HEMOCLIP PLACEMENT Pre-op diagnosis: Colon cancer screening (first colonoscopy), positive Cologuard test, family history of colon polyps (brother) Post-op diagnosis: Colon polyps, Diverticulosis, hemorrhoids Endoscopist: Kunal Thomas MD Anesthesia: MAC Consent: Indications for the procedure and potential complications of bleeding, perforation, reaction to medications and missed diagnosis were discussed with the patient and informed consent was obtained. Instrument: Olympus CF H 190 L variable stiffness adult colonoscope Monitoring: Vital signs and clinical assessment, intermittent blood pressure monitoring, continuous EKG monitoring, Pulse oximetry and Carbon Dioxide monitoring were done throughout the procedure. Please see anesthesia flowsheet. Colon withdrawl time was 37 minutes. Procedure: The patient was placed in the left lateral decubitis position and pre-procedure medications were administered. After a digital rectal examination of the ano-rectum, the video colonoscope was inserted into the rectum and advanced through the colon to the cecum. The colonoscope was slowly withdrawn in a retrograde panoramic fashion and the colon mucosa was carefully examined including a retroflexed view of the rectum. Findings and interventions are described below. Procedure Difficulty: without difficulty Findings: Terminal Ileum: Not evaluated Cecum: Normal Ascending Colon: Normal Transverse Colon: A 2 cms sessile polyp at 65 cms - removed with a hot snare and polypectomy site was closed with 2 hemoclips Descending Colon: A 12 -15 mm sessile polyp - removed with a hot snare Moderate diverticulosis Sigmoid Colon: A 2 to 2.5 cms pedunculated polyp at 50 cms - removed with a hot snare. Polypectomy site was closed with 2 hemoclips and marked by maria e ink. A 2 cms pedunculated polyp at 30 cms - removed with hot snare. Polypectomy site was closed with 1 hemoclip and marked by Maria E ink Severe diverticulosis with luminal narrowing Rectum: Normal Ano-rectum: Moderate internal hemorrhoids Colon preparation: Good after some irrigation. Edwards Bowel Preparation Scale Right colon; 3 Transverse colon: 3 Left colon; 3 (0 = Unprepared colon segment with mucosa not seen due to solid stool that cannot be cleared. 1 = Portion of mucosa of the colon segment seen, but other areas of the colon segment not well seen due to staining, residual stool and/or opaque liquid. 2 = Minor amount of residual staining, small fragments of stool and/or opaque liquid, but mucosa of colon segment seen well. 3 = Entire mucosa of colon segment seen well with no residual staining, small fragments of stool or opaque liquid) Impression and Post Procedure Diagnosis: Colonoscopy Findings: Three large and one medium sized polyps were removed Moderate diverticulosis seen in the left colon Moderate hemorrhoids on retroflexed exam. Plan: I will send a letter with biopsy results Pt has a FU appointment on 05/30/24 with GLADIS Cooley. Repeat Colonoscopy in 6 to 12 months to check polypectomy sites in the left and transverse colon if polyps are adenomatous and 5 years if polyps are hyperplastic. Above findings were reviewed with the patient and relevant handouts were given and the discharge area. ADDENDUM: Pt complained of abdominal pain after the procedure. Stat CXR and KUB ordered which showed: Upright study shows normal bowel gas pattern without free air, mass, or mass effect. BIOPSIES SHOWED: A. Colon, polypectomy: Tubular adenoma; negative for high-grade dysplasia or carcinoma. B. Colon, descending, polypectomy: Hyperplastic mucosal polyp. C. Colon, sigmoid, polypectomy: Tubulovillous adenoma; negative for high-grade dysplasia or carcinoma. D. Colon, 30 cm, polypectomy: Tubular adenoma; negative for high-grade dysplasia or carcinoma Pt called and biopsy results reviewed with him and advised repeat colon in 1 year. He reported abdominal pain has improved and only having minor discomfort. Assessment & Plan Assessment & Plan (1) Encounter for screening colonoscopy: Comment: 02/29/24 colonoscopy complete with good prep after irrigation- 2 to 2.5 cms pedunculated Tubulovillous adenoma , 2 cm TA (at 30 cms) severe diverticulosis with luminal narrowing ( sigmoid), 12-15 mm HP ( descending), 3 cm TA ( transverse). Recommendation for repeat in 6-12 months. Code(s): Z12.11 - Encounter for screening for malignant neoplasm of colon Category: Medical Plan: History of multiple colonic polyps (one large, one precancerous), classified for higher-risk surveillance per established guidelines. Prior colonoscopy (02-29-2024) revealed complete scope, good prep, all lesions removed; no current GI symptoms suggesting recurrence. Additional Testing: - Repeat colonoscopy scheduled per high-risk protocol; order placed for early 2025 or post-vascular recovery (post-op clearance). Medication Management: - Initiate bowel prep protocol: Miralax (PEG) with split-dose per instructions. OTC bisacodyl X 4 tablets (generic acceptable) as adjunct if needed for bowel cleansing. Lifestyle Recommendations: - Continue healthy lifestyle; clear liquid diet one day prior to procedure; avoid red/blue/purple liquids. - Abstain from alcohol, tobacco (ongoing); maintain usual healthy eating. Follow-Up: - GI follow-up after colonoscopy or sooner if symptoms arise; nurse or clinic staff will contact for scheduling as patient recovers post-operatively. (2) Neuropathy: Code(s): G62.9 - Polyneuropathy, unspecified Category: Medical Plan: Recent femoral angioplasty/right hip cleaning; ongoing mild pain and numbness, currently cleared on operative side. Additional Testing: - Continue post-op care under vascular surgery per Dr. Rome; monitor healing. Medication Management: - Continue prescribed atorvastatin and clopidogrel. - Dulaglutide to remain on hold until post-op clearance by surgical team. Hold 7 days prior to colonoscopy Lifestyle Recommendations: - Encourage ambulation as tolerated for recovery. - Monitor leg symptoms and communicate any changes with vascular team/primary care. Follow-Up: - Surgical clinic post-procedural clearance anticipated; GI evaluation to resume after recovery period (~90 days or per vascular recommendations). Plan Follow-up after colonoscopy or sooner as needed Time: I spent a total of 30 minutes on the date of encounter which includes: Preparing to see the patient (reviewed previous documentation, test results and medical history) Performing a medically appropriate exam and/or evaluation Ordering medications, tests, and procedures Documenting clinical information in the health record Orders: Referrals GI Procedure Notification K63.5 - Polyp of colon, Z12.11 - Encounter for screening for malignant neoplasm of colon Medications: New polyethylene glycol 3350 (Miralax) per colonoscopy prep instructions 238 grams PO ONCE 238 grams 0RF Coding Level of Care Code Established Pt Est Pt Level 4 (75464) Patient Type Established Diagnoses Encounter for screening colonoscopy Z12.11 Neuropathy G62.9
[2025-05-24 10:43] VITALS: BP 100/58; PULSE 110; O2SAT 97; BMI 34.5
[2025-05-24 10:54] VITALS: PULSE 97
== END 2025-05-24 11:06 | disposition home or self-care (01) ==
LOC: HO.HGI 10:37
PROVIDERS: PCP Family Medicine; Visit Provider Nurse Practitioner Family
DX: Z01.818 Encounter for other preprocedural examination (principal); Z12.11 Encounter for screening for malignant neoplasm of colon; Z86.0101 Personal history of adenomatous and serrated colon polyps; G62.9 Polyneuropathy, unspecified
CPT/HCPCS: 99214

== ENCOUNTER → 2025-05-24 10:37 | Outpatient (BNVA) | payer MEDICARE, MEDICAID, SELFPAY | PROVIDERS: PCP Family Medicine; Visit Provider Nurse Practitioner Family | DX: Z01.818 Encounter for other preprocedural examination (principal); K63.5 Polyp of colon; G62.9 Polyneuropathy, unspecified | CPT/HCPCS: 99212 ==